=== PATIENT | female | born 1990 | race Two or more races ===

== ENCOUNTER 2025-07-10 12:22 | Emergency (ER) | payer MEDICAID, SELFPAY ==
[2025-07-10 12:24] VITALS: BMI 34.9
[2025-07-10 12:43] VITALS: BP 121/77; PULSE 83; RESP 18; TEMP 36.8; O2SAT 95
--- NOTE | 2025-07-10 13:04 | EDNOTE_ITS ---
Lower Extremity Injury RME/HPI General Chief Complaint: Extremity Injury, Lower Stated Complaint: SEVERE PAIN L) KNEE/WRIST Time Seen by Provider: 07/10/25 12:43 Source: patient Arrival date/time: 07/10/25 12:22 34-year-old female with no known medical history presents to the emergency room with a chief complaint of pain in her left knee and wrist x 1 year Mode of arrival: ambulatory Limitations: no limitations Related Data Previous Rx's ?Medication ?Instructions ?Recorded albuterol sulfate 90 mcg/actuation 1 inh inhalation QI D PRN shortness 01/12/23 aerosol inhaler of breath or wheezing #8.5 g steve cyclobenzaprine 10 mg tablet 10 mg PO TID #14 tabs 11/22 Allergies Allergy/AdvReac Type Severity Reaction Status Date / Time broccoli Allergy Intermediate Swelling Verified 07/10/25 12:28 of Lip/Tongue/Throat cauliflower Allergy Intermediate Swelling Verified 07/10/25 12:28 of Lip/Tongue/Throat chocolate flavor Allergy Intermediate Swelling Verified 07/10/25 12:28 of Lip/Tongue/Throat lettuce Allergy Intermediate Swelling Verified 07/10/25 12:28 of Lip/Tongue/Throat Review of Systems Review of Systems Systems Reviewed: All systems reviewed, normal except as documented Constitutional Constitutional: Reports system reviewed and no additional complaints, except as documented, Denies fatigue, Denies fever(s), Denies headache(s) and Denies weakness Eyes Eyes: Reports system reviewed and no additional complaints, except as documented, Denies blurry vision and Denies change in vision ENT Ears, Nose, Mouth, and Throat: Reports system reviewed and no additional complaints, except as documented, Denies otalgia, Denies headache(s), Denies nasal congestion, Denies throat swelling and Denies vertigo Cardiovascular Cardiovascular: Reports system reviewed and no additional complaints, except as documented, Denies chest pain, Denies dyspnea and Denies dyspnea on exertion Respiratory Respiratory: Reports system reviewed and no additional complaints, except as documented, Denies chest congestion, Denies cough, Denies dyspnea, Denies dyspnea on exertion and Denies wheezing Gastrointestinal Gastrointestinal: Reports system reviewed and no additional complaints, except as documented, Denies abdominal pain, Denies cramping, Denies nausea and Denies vomiting Genitourinary Genitourinary: Reports system reviewed and no additional complaints, except as documented Musculoskeletal Musculoskeletal: Reports system reviewed and no additional complaints, except as documented, Denies back pain, Reports joint swelling and Reports muscle weakness Integumentary/Breasts Skin/Breast: Reports system reviewed and no additional complaints, except as documented and Denies wounds Neurologic Neurologic: Reports system reviewed and no additional complaints, except as documented, Denies confusion, Denies headache(s), Denies lack of coordination, Denies vertigo and Denies weakness Psychiatric Psychiatric: Reports system reviewed and no additional complaints, except as documented, Denies anxiety, Denies confusion, Denies depression, Denies paranoia, Denies suicidal ideation and Denies tactile hallucinations Endocrine Endocrine: Reports system reviewed and no additional complaints, except as documented and Denies fatigue Hematologic/Lymphatic Hematologic/Lymphatic: Reports system reviewed and no additional complaints, except as documented and Denies lymphadenopathy Allergic/Immunologic Allergic/Immunologic: Reports system reviewed and no additional complaints, except as documented, Denies throat swelling, Denies urticaria and Denies wheezing ED Exam General Limitations: Present no limitations General appearance: Present alert and in no apparent distress Head Head exam: Present atraumatic Eye Eye exam: Present normal appearance, PERRL and EOMI ENT ENT exam: Present normal exam, normal oropharynx and mucous membranes moist Neck Neck exam: Present normal inspection, full ROM and trachea midline Chest Chest inspection: Present normal inspection and symmetric chest wall rise Respiratory Respiratory exam: Present normal lung sounds bilaterally Cardiovascular Cardiovascular exam: Present regular rate, normal rhythm and normal heart sounds Abdominal Exam Abdominal exam: Present soft and normal bowel sounds Extremities Exam Extremities exam: Present normal inspection and full ROM Expanded Upper Extremity Exam Shoulder exam: Present normal inspection Arm exam: Present normal inspection Elbow exam: Present normal inspection Forearm/Wrist exam: Present tenderness Hand exam: Present normal inspection Expanded Lower Extremity Exam Hip/Pelvis exam: Present normal inspection Upper leg exam: Present normal inspection Knee exam: Present tenderness and swelling Back Exam Back exam: Present normal inspection and full ROM Neurological Exam Neurological exam: Present alert, oriented X3 and CN II-XII intact Psychiatric Psychiatric exam: Present normal affect and normal mood Skin Skin exam: Present warm, dry, intact and normal color Course Quality Measures none Orders Category Date Time Status Ketorolac Inj [Toradol Inj] Med 07/10/25 12:58 Discontinued 30 mg IM X1 ONE Vital Signs Vital signs: Vital Signs Temperature 98.2 F 07/10/25 12:43 Pulse Rate 83 07/10/25 12:43 Respiratory Rate 18 07/10/25 12:43 Blood Pressure 121/77 07/10/25 12:43 Pulse Oximetry (%) 95 07/10/25 12:43 Oxygen Delivery Method Room Air 07/10/25 12:43 O2 saturation 95% within normal limits Extremity Injury, Lower MDM Narrative MDM Narrative:: 34-year-old female with no known medical history presents to the emergency room with a chief complaint of pain in her left knee and wrist x 1 year Patient is hemodynamically stable and in no apparent distress Physical examination shows pain and tenderness to the patient's left knee. The patient was able to show me documentation that shows she has a left knee meniscus tear. This injury has been going on for about a year but the patient states she is having some breakthrough pain. The patient states she has an appointment with the surgeon for possible surgery. The patient also has a tear in the ligament in her left wrist which will also require surgery. Patient was given medication with improvement to her symptoms and discharged to follow-up with primary care provider as well as her general surgeon. Patient data External records reviewed:: [facility] previous records Clinical information provided by:: patient Social determinants that could affect healthcare access:: none Patient has the following chronic illnesses:: No chronic illness How is presenting disease/condition affected by chronic disease/condition?: no chronic disease Evaluation data The following diagnostics were reviewed and interpreted by me:: lab results and radiology exam(s) Lab and/or radiology exams considered but not ordered:: Labs and radiology exams considered and ordered Interpretation Summary: N/A Medications / Prescriptions Medications or Prescriptions considered but not ordered:: Medication given Medication administrations:: Medication Administration History Discontinued Medications Ketorolac Tromethamine (Ketorolac Inj 60 Mg/2 Ml Vial) 30 mg IM X1 ONE Stop: 07/10/25 12:59 Last Admin: 07/10/25 13:06 Dose: 30 mg Documented By: Medication given Consultations Consultation(s) initiated? (list below): No Diagnosis Extremity Injury, Lower Differential Diagnosis: acute internal derangement of knee, ankle fracture and other Most likely diagnosis given after review of the tests above:: Acute internal derangement of knee Admission Indicated Admission indicated?: not indicated Admission Request Was there a request for admission?: No Disposition Plan Disposition Plan: Discharge Discharge Attestation Discharge Attestation: The patient and all family members were given an opportunity to ask questions and understood the discharge instructions. Discharge instructions specifically effects, indications for sooner follow up or return to the emergency department, and the expected course of current diagnosis. Patient condition: Stable Discharge Plan Plan Patient Disposition: HOME (Self Care) Discharge Disposition comment: Stable Prescriptions/Referrals Prescriptions/Med Rec: New cyclobenzaprine 10 mg tablet 10 mg PO TID Qty: 14 0RF No Action albuterol sulfate 90 mcg/actuation HFA aerosol inhaler 1 inh inhalation QID PRN (Reason: shortness of breath or wheezing) Qty: 8.5 0RF Problem List Clinical Impression: Acute internal derangement of knee Patient/Caregiver Discharge Instructions Education Materials: How Your Knee Works Additional Instructions: Please follow-up with your primary care provider in the next 24 to 48 hours You will need to follow-up with your general surgeon or your primary care provider for further management of your breakthrough pain due to your meniscus tears Medication was given to you here in the emergency room For any evidence of worsening signs or symptoms return to the emergency room immediately Print Language: Azeri Stand Alone Forms: Anna Award Info., Patient Portal Info Letter PA/NANOTECHNOLOGY ENGINEERING TECHNOLOGIST Supervising Physician PA/NANOTECHNOLOGY ENGINEERING TECHNOLOGIST Supervising Physician: Dr. Antony ROGERS Attestation MD Attestation The patient was seen by the midlevel practitioner. I, the co-signing physician, was present during the entire ER visit. While I did not physically examine the patient, I was available for consultation as needed. I agree with the plan and documentation.
[2025-07-10] MEDS: KETOROLAC INJ 60 MG/2 ML VIAL 30 MG IM (13:06)
== END 2025-07-10 13:10 | disposition home or self-care (01) ==
LOC: SERX 13:17
PROVIDERS: Emergency Provider Family Medicine
DX: M23.92 Unspecified internal derangement of left knee (principal)
CPT/HCPCS: 96372; 99283; J1885